=== PATIENT | female | born 1980 | race Caucasian/White ===

== ENCOUNTER 2019-04-16 07:32 | Emergency (ER) | payer MEDICAID ==
[~2019-04-16] VITALS: Ht 167.6 cm; Wt 70.5 kg
[2019-04-16 07:35] VITALS: Ht 167.6 cm; Wt 70.5 kg
[2019-04-16] MEDS ORDERED: TAMIFLU75 MG PO (07:37)
[2019-04-16] MEDS ORDERED: SULFAMETHOXAZOL1 TA2 PO (07:37)
[2019-04-16 08:09] LABS: BASOPHILS 0.2 % (0-2); EOSINOPHILS 0.5 % (0-7); HEMATOCRIT 40.1 % (36.0-48.0); HEMOGLOBIN 13.9 g/dL (12-16); IMMATURE GRANULOCYTES 0.4 % (0-5); LYMPHOCYTES 5.8 % (15-50); MCH 31.4 pg (26.0-34.0); MCHC 34.7 g/dL (31.0-37.0); MCV 90.7 fL (80.0-100.0); MEAN PLATELET VOLUME 9.6 fL (7.4-10.4); MONOCYTES 11.3 % (2-11); NEUTROPHILS 81.8 % (40-80); PLATELET COUNT 267 10x3/uL (130-400); RBC 4.42 10x6/uL (4.00-5.40); RDW 12.8 % (11.5-14.5); WBC 11.4 10x3/uL (4.8-10.8)
[2019-04-16 08:19] LABS: APPEARANCE HAZY (CLEAR); BILIRUBIN NEGATIVE (NEGATIVE); COLOR YELLOW (YELLOW); GLUCOSE NEGATIVE (NEGATIVE); KETONE NEGATIVE (NEGATIVE); NITRITE NEGATIVE (NEGATIVE); PROTEIN NEGATIVE (NEGATIVE); RED CELLS - URINE RARE /hpf (0-5); WHITE CELLS - URINE 0-5 /hpf (NEGATIVE)
[2019-04-16 08:20] LABS: ALBUMIN 2.9 g/dL (3.4-5.0); ANION GAP 8.9 mmol/L (8-16); BILIRUBIN - TOTAL 0.26 mg/dL (0.2-1.3); CALCIUM 8.7 mg/dL (8.5-10.1); CREATININE - SERUM 0.9 mg/dL (0.6-1.3); POTASSIUM - SERUM 4.9 mmol/L (3.5-5.1); PROTEIN - SERUM 7.1 g/dL (6.4-8.2)
[2019-04-16 08:20] LABS: BACTERIA MODERATE /hpf (NEGATIVE); EPITHELIAL CELLS 0-5 /hpf (0-5)
[2019-04-16] MEDS ORDERED: KEFLEX500 MG PO (09:00)
[2019-04-16] MEDS ORDERED: MACROBID100 MG PO (09:00)
[2019-04-16] MEDS ORDERED: IBUPROFEN800 MG PO (09:01)
[2019-04-16] MEDS ORDERED: ACETAMINOPHEN500 M1 PO (09:01)
[2019-04-16] MEDS ORDERED: CYCLOBENZAPRINE10 MG PO (09:01)
[2019-04-16 09:59] VITALS: BP 102/65
== END 2019-04-16 09:59 | disposition home or self-care (01) ==
LOC: D.ER 07:32
PROVIDERS: Family Medicine
DX: N39.0 Urinary tract infection, site not specified (principal); F17.210 Nicotine dependence, cigarettes, uncomplicated